=== PATIENT | female | born 1975 | race Caucasian/White ===

== ENCOUNTER 2018-03-10 09:38 | Emergency (ER) | payer BC ==
[2018-03-10 10:15] LABS: KETONE, URINE AUTO RFX NEGATIVE (NEGATIVE); LEUKOCYTE ESTERASE UR AUTO RFX NEGATIVE (NEGATIVE); MUCUS, URINE RFX SMALL (NEGATIVE); NITRITE, URINE AUTO RFX NEGATIVE (NEGATIVE); RBC, URINE AUTO RFX 0 /HPF (0-3); SPECIFIC GRAVITY UR AUTO RFX 1.021 (1.002-1.035); SQUAM EPITHELIAL CELL UR AURFX 4 /HPF (0-6); WBC, URINE AUTO RFX 0 /HPF (0-3)
[2018-03-10] MEDS: KETOROLAC 30 MG/ML VIAL (J1885) IV (11:13)
[2018-03-10] MEDS: ONDANSETRON 4MG/2ML VIAL (J2405) IV (11:13)
[2018-03-10 11:20] LABS: BASO # 0.1 10^3/uL (0.0-0.2); BASO % 0.9 % (0.0-1.0); EOS # 0.1 10^3/uL (0.0-0.50); EOS % 1.3 % (0.0-3.0); HEMATOCRIT 45.2 % (36.0-47.0); HEMOGLOBIN 15.4 g/dl (12.0-15.5); IMMATURE GRANULOCYTE % 0.3 % (0-3.0); LYMPH # 3.7 10^3/uL (1.5-4.5); LYMPH % 35.7 % (24.0-44.0); MEAN CORPUSCULAR HEMOGLOBIN 31.8 pg (27.0-33.0); MEAN CORPUSCULAR HGB CONC 34.1 g/dl (32.0-36.5); MEAN CORPUSCULAR VOLUME 93.4 fl (80.0-96.0); MONO # 1.1 10^3/uL (0.0-0.8); MONO % 10.1 % (0.0-5.0); NEUTROPHILS # 5.4 10^3/uL (1.8-7.7); NEUTROPHILS % 51.7 % (36.0-66.0); PLATELET COUNT, AUTOMATED 298 10^3/uL (150-450); RED BLOOD COUNT 4.84 10^6/uL (4.00-5.40); RED CELL DISTRIBUTION WIDTH 12.3 % (11.5-14.5); WHITE BLOOD COUNT 10.4 10^3/uL (4.0-10.0)
[2018-03-10 11:44] LABS: LACTIC ACID SEPSIS PROTOCOL 1.1 MMOL/L (0.4-2.0)
[2018-03-10 11:46] LABS: ALBUMIN 3.9 GM/DL (3.2-5.2); ALBUMIN/GLOBULIN RATIO 1.03 (1.00-1.93); ALKALINE PHOSPHATASE 74 U/L (45-117); ALT/SGPT 29 U/L (12-78); ANION GAP 9 MEQ/L (8-16); AST/SGOT 18 U/L (7-37); BILIRUBIN,DIRECT 0.1 MG/DL (0.0-0.2); BILIRUBIN,TOTAL 0.5 MG/DL (0.2-1.0); BLOOD UREA NITROGEN 10 MG/DL (7-18); CALCIUM LEVEL 8.9 MG/DL (8.5-10.1); CARBON DIOXIDE LEVEL 26 MEQ/L (21-32); CHLORIDE LEVEL 106 MEQ/L (98-107); CREATININE FOR GFR 0.64 MG/DL (0.55-1.30); GLOMERULAR FILTRATION RATE > 60.0 (>58); GLUCOSE, FASTING 101 MG/DL (70-100); LIPASE 198 U/L (73-393); POTASSIUM SERUM 4.1 MEQ/L (3.5-5.1); SODIUM LEVEL 141 MEQ/L (136-145); TOTAL PROTEIN 7.7 GM/DL (6.4-8.2)
[2018-03-10] MEDS ORDERED: ISOVUE-370 76% 100ML VIAL (Q9967) As Ordered (12:23)
== END 2018-03-10 14:29 | disposition home or self-care (01) ==
LOC: M ED 09:38
DX: A08.4 Viral intestinal infection, unspecified (principal); N80.9 Endometriosis, unspecified; G47.00 Insomnia, unspecified; Z72.0 Tobacco use; Z79.899 Other long term (current) drug therapy; Z88.5 Allergy status to narcotic agent; Z88.0 Allergy status to penicillin
CPT/HCPCS: J2405

== ENCOUNTER 2018-06-14 12:45 | Emergency (ER) | payer BC ==
[2018-06-14] MEDS: KETOROLAC TROMETHAMINE 10 MG TAB PO (15:22)
[2018-06-14] MEDS: METHOCARBAMOL 750 MG TAB PO (15:22)
== END 2018-06-14 16:12 | disposition home or self-care (01) ==
LOC: M ED 12:45
DX: S46.812A Strain of other muscles, fascia and tendons at shoulder and upper arm level, left arm, initial encounter (principal); W51.XXXA Accidental striking against or bumped into by another person, initial encounter; Y92.89 Other specified places as the place of occurrence of the external cause; F17.210 Nicotine dependence, cigarettes, uncomplicated; Z88.0 Allergy status to penicillin; Z88.5 Allergy status to narcotic agent; Z79.899 Other long term (current) drug therapy
CPT/HCPCS: 99283

== ENCOUNTER 2018-08-06 18:35 | Emergency (ER) | payer BC | END 2018-08-06 19:14 | disposition left against medical advice (07) | LOC: M ED 18:35 | DX: Z53.29 Procedure and treatment not carried out because of patient's decision for other reasons (principal) ==

== ENCOUNTER → 2018-10-12 | Outpatient (CLI) | payer BC ==
[~2018-10-12] MED LIST: AMBI5TAB PO; NORCOTAB PO; ZOFR4TAB14 PO
--- NOTE | 2018-10-12 14:42 | REP ---
LEFT KNEE, FIVE VIEWS: HISTORY: Contusion. There is no acute fracture or dislocation. The joint spaces are normal in appearance. IMPRESSION: There is no acute fracture or dislocation. Electronically Signed by Jacky Holley MD 10/12/2018 02:49 P
== END ==
LOC: M WUC 13:23
PROVIDERS: ATTEND Physician Assistant
DX: S80.02XA Contusion of left knee, initial encounter (principal); W18.30XA Fall on same level, unspecified, initial encounter; Y92.009 Unspecified place in unspecified non-institutional (private) residence as the place of occurrence of the external cause

== ENCOUNTER 2019-03-18 15:32 | Emergency (ER) | payer BC, SELFPAY ==
[~2019-03-18] VITALS: Ht 162.6 cm; Wt 76.1 kg
[2019-03-18 15:32] VITALS: BP 163/99
[~2019-03-18 15:32] MED LIST changes: +HYDR-3715 PO; -NORCOTAB PO
--- NOTE | 2019-03-19 09:35 | ECGEPIP ---
[facility] - ED Test Date: 2019-03-18 Pat Name: DIMAS TABOR Department: Room: - Gender: Female Supervisor Customer Services: [place] : 1975 Requested By: Chava Wright Order Number: [id number] Reading MD: Jerri Cleveland Measurements Intervals [place] Rate: 80 P: 60 [place]: 193 QRS: 72 QRSD: 97 T: 32 QT: 385 QTc: 446 Interpretive Statements SINUS RHYTHM POSSIBLE LEFT ATRIAL ENLARGEMENT INCOMPLETE RIGHT BUNDLE BRANCH BLOCK No prior Electronically Signed on 03-19-2019 9:35:23 EDT by Jerri Cleveland
== END 2019-03-18 16:50 | disposition left against medical advice (07) ==
LOC: M ED 15:32
DX: R07.9 Chest pain, unspecified (principal); I45.19 Other right bundle-branch block; Z53.21 Procedure and treatment not carried out due to patient leaving prior to being seen by health care provider

== ENCOUNTER → 2020-09-01 | Outpatient (CLI) | payer SELFPAY | LOC: M LABSMTC 10:16 | PROVIDERS: ATTEND Pediatrics | DX: Z20.822 Contact with and (suspected) exposure to COVID-19 (principal) ==

== ENCOUNTER 2025-07-11 13:29 | Emergency (ER) | payer OTHER ==
[~2025-07-11] VITALS: Ht 162.6 cm; Wt 72.5 kg
[~2025-07-11 13:29] MED LIST changes: -AMBI5TAB PO; +ZOLP-532 PO
[2025-07-11 16:17] LABS: BASO # 0.1 10^3/uL (0.0-0.2); BASO % 0.6 % (0.0-1.0); EOS # 0.0 10^3/uL (0.0-0.5); EOS % 0.1 % (0.0-3.0); LYMPH # 4.8 10^3/uL (1.5-5.0); LYMPH % 35.4 % (24.0-44.0); MONO # 1.0 10^3/uL (0.0-0.8); MONO % 7.4 % (2.0-8.0); NEUTROPHILS # 7.7 10^3/uL (1.5-8.5); NEUTROPHILS % 56.4 % (36.0-66.0); PLATELET COUNT, AUTOMATED 366 10^3/uL (150-450)
[2025-07-11 16:47] LABS: ALT/SGPT 22 U/L (7.0-40); AST/SGOT 21 U/L (<34); C REACTIVE PROTEIN QUANTITATIV < 0.50 MG/DL (<1.0); CALCIUM LEVEL 9.0 MG/DL (8.5-10.1); CARBON DIOXIDE LEVEL 25 MMOL/L (20-31); CHLORIDE LEVEL 107 MMOL/L (98-107); CREATININE FOR GFR 0.61 MG/DL (0.55-1.30); GLOMERULAR FILTRATION RATE > 90.0 (>51); POTASSIUM SERUM 4.6 MMOL/L (3.5-5.1); SODIUM LEVEL 139 MMOL/L (136-145)
[2025-07-11] MEDS ORDERED: PRED10TA2 PO (17:31)
[2025-07-11 17:32] VITALS: BP 142/91; TEMP 97.6; O2SAT 100
== END 2025-07-11 17:37 | disposition home or self-care (01) ==
LOC: M ED 13:29
DX: M25.552 Pain in left hip (principal); Z88.0 Allergy status to penicillin; Z88.5 Allergy status to narcotic agent